=== PATIENT | male | born 1960 | race Caucasian/White ===

== ENCOUNTER 2019-12-28 06:11 | Emergency (ER) | payer MEDICAID, SELFPAY ==
[2019-12-28] VITALS (9 sets, daily range): BP systolic 112–147; BP diastolic 69–98; PULSE 90–113; RESP 20–35; TEMP 37; O2SAT 89–96; BMI 34.4
--- NOTE | 2019-12-28 06:25 | XRR_ITS ---
PROCEDURE INFORMATION: Exam: XR Chest, 1 View Exam date and time: 12/28/2019 6:26 AM Age: 59 years old Clinical indication: Shortness of breath; Additional info: SOB TECHNIQUE: Imaging protocol: XR of the chest Views: 1 view. COMPARISON: No relevant prior studies available. FINDINGS: Lungs: Bilateral interstitial pulmonary infiltrates are present with patchy bibasilar airspace consolidation greater on the right side. This is consistent with pneumonia possibly viral in nature. Pleural space: Unremarkable. No pleural effusion. No pneumothorax. Heart/Mediastinum: Unremarkable. No cardiomegaly. Bones/joints: There is a thoracic scoliosis convex the right. XR/XR chest 1V portable [id number] IMPRESSION: Bilateral interstitial pulmonary infiltrates with patchy basilar airspace consolidation most likely due to a viral pneumonia.
[2019-12-28 06:43] LABS: ABG PCO2 31.1 mmHg (35-45); ABG PH Result 7.48 (7.35-7.45); Arterial Blood Gas Hematocrit 44.8 % (42-52); Base Excess ABG 0.2 mmol/L (-2.0-2.0); Blood Gas Allen Test Pos; Blood Gas Sample Site Radial, left; Blood Gas Sample Type Arterial; HCO3 ABG 22.9 mmol/L (22-26); Oxygen Device NC; PO2 ABG 62.3 mmHg (80.0-100.0)
--- NOTE | 2019-12-28 06:54 | ED_ITS ---
HPI - SOB/Dyspnea General: Chief Complaint: Shortness of Breath/Dyspnea Stated Complaint: DIFFICULTY BREATHING Time Seen by Provider: 12/28/19 06:13 Source: patient and EMS Mode of arrival: EMS Limitations: no limitations History of Present Illness: HPI Narrative: 59-year-old male who is here from [facility] with Covid pneumonia. He tested positive last week and has had increasing shortness of breath. Patient is currently on 7 L and still in some distress with respiration saturation in the 80s. He had a low- grade fever. Patient denies any chest pain. He denies any worsening or improving factors. He is a DNR and DNI. Associated symptoms: Deny abdominal pain, chest pain, fever(s), nausea or vomiting Review of Systems Const: Denies: fever(s), chills, body aches or change in appetite Eyes: Denies: blurry vision or eye discomfort ENMT: Denies: throat pain or dental pain Card: Denies: chest pain Resp: Reports: dyspnea GI: Denies: abdominal pain, nausea, vomiting or diarrhea : Denies: dysuria Musc: Denies: neck pain or back pain Skin/Breast: Denies: rash Neuro: Denies: headache(s) Psych: Denies: depression Shai/Lymph: Denies: easy bruising All/Imm: Denies: urticaria Physical Exam Const: COMMON NORMALS: patient oriented x3 GENERAL APPEARANCE: ill appearing HENMT: COMMON NORMALS: normocephalic and atraumatic HEAD & SCALP: normocephalic and atraumatic Eye: COMMON NORMALS: Equal, round and reactive pupils present and EOMs intact bilaterally PUPIL: Yes Equal, round and reactive pupils present Neck/C-Spine: COMMON NORMALS: full ROM and supple Chest: COMMONS NORMALS: normal inspection of the chest and normal palpation of entire chest wall Resp: COMMON NORMALS: No retractions and No use of accessory muscles EFFORT & INSPECTION: Yes tachypneic and Yes respiratory distress AUSCULTATION: rales Cardio: COMMON NORMALS: regular rate, regular rhythm and No murmurs present (Cardio) RATE: regular rate RHYTHM: regular rhythm GI: COMMON NORMALS: Normal to inspection, nondistended, normoactive bowel sounds present, Soft to palpation, non-tender and no masses PALPATION: Yes Soft to palpation Extremity: COMMON NORMALS: normal to inspection and full ROM Neuro: COMMON NORMALS: patient oriented x3, moves all extremities and no focal motor deficits Psych: COMMON NORMALS: mental status grossly normal, Normal thought process present and cooperative THOUGHT PROCESS: Normal thought process present Skin: COMMON NORMALS: no rashes or lesions noted and no wounds GENERAL SKIN EXAM: no rashes or lesions noted Course Vital Signs: Vital signs: Vital Signs Temperature 98.6 F 12/28/19 10:43 Pulse Rate 95 12/28/19 10:43 Respiratory Rate 35 H 12/28/19 10:43 Blood Pressure 119/69 12/28/19 10:43 Pulse Oximetry 92 12/28/19 10:43 MDM - SOB/Dyspnea MDM Narrative: Medical decision making narrative: Jay presents here with Covid pneumonia causing dyspnea. Patient's been placed on BiPAP here. Patient is DNR and DNI. Will after transfer as we do not have any viral ICU beds. Spoke to [facility] and will transfer to [facility]. Patient has been stable otherwise while here. Lab Data: Labs: Lab Results 12/28/19 12/28/19 12/28/19 Range/Units 06:32 07:00 07:00 WBC 8.9 (4.0-10.0) 10^3/ uL RBC 5.09 (4.1-5.3) 10^6/u L Hgb 14.0 (11.7-16.6) g/dL Hct 42.8 (42.0-52.0) % MCV 84.1 (80-94) fL MCH 27.5 L (28.0-34.0) pg MCHC 32.7 (30.0-36.0) g/dL RDW 15.3 H (12.1-15.1) % Plt Count 303 (130-400) 10^3/c mm MPV 9.8 (7.4-10.4) fL Neut % (Auto) 73.5 % Lymph % (Auto) 17.0 % [place] % (Auto) 6.8 % Eos % (Auto) 0.1 % Baso % (Auto) 0.3 % Neut # (Auto) 6.56 (1.8-7.7) 10^3/u L Lymph # (Auto) 1.5 (0.8-4.8) 10^3/u L [place] # (Auto) 0.6 (0.2-0.9) 10^3/u L Eos # (Auto) 0.0 (0.0-0.8) 10^3/u L Baso # (Auto) 0.0 (0.0-0.1) 10^3/u L Nucleated RBC % (a uto) 0 % Nucleated RBCs # 0.0 /100WBC Fibrinogen (174-498) mg/dL Specimen Type Arterial Sample Site Radial, left ABG pH 7.48 H (7.35-7.45) ABG pCO2 31.1 L (35-45) mmHg ABG pO2 62.3 L (80.0-100.0) mmH g ABG HCO3 22.9 (22-26) mmol/L ABG Base Excess 0.2 (-2.0-2.0) mmol/ L Jase Test Pos Hematocrit 44.8 (42-52) % O2 Delivery Device Nc O2 Liters/Min 6.0 % FiO2 44.0 % 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7) g/dL Albumin 3.3 L (3.5-5.2) g/dL Globulin 3.8 (1.3-4.6) g/dL 12/28/19 12/28/19 Range/Units 07:00 07:50 WBC (4.0-10.0) 10^3/ uL RBC (4.1-5.3) 10^6/u L Hgb (11.7-16.6) g/dL Hct (42.0-52.0) % MCV (80-94) fL MCH (28.0-34.0) pg MCHC (30.0-36.0) g/dL RDW (12.1-15.1) % Plt Count (130-400) 10^3/c mm MPV (7.4-10.4) fL Neut % (Auto) % Lymph % (Auto) % [place] % (Auto) % Eos % (Auto) % Baso % (Auto) % Neut # (Auto) (1.8-7.7) 10^3/u L Lymph # (Auto) (0.8-4.8) 10^3/u L [place] # (Auto) (0.2-0.9) 10^3/u L Eos # (Auto) (0.0-0.8) 10^3/u L Baso # (Auto) (0.0-0.1) 10^3/u L Nucleated RBC % (a uto) % Nucleated RBCs # /100WBC Fibrinogen 781 H (174-498) mg/dL Specimen Type Sample Site ABG pH (7.35-7.45) ABG pCO2 (35-45) mmHg ABG pO2 (80.0-100.0) mmH g ABG HCO3 (22-26) mmol/L ABG Base Excess (-2.0-2.0) mmol/ L Jase Test Hematocrit (42-52) % O2 Delivery Device O2 Liters/Min % FiO2 % 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 Sodium (136-145) mmol/L Potassium (3.5-5.1) mmol/L Chloride (98-107) mmol/L Carbon Dioxide (22-29) mmol/L Anion Gap (5-19) BUN (6-20) mg/dL Creatinine (0.7-1.2) mg/dL GFR Calculation (90-130) mL/min Glucose (65-115) mg/dL Calculated Osmolal ity (285-295) mOsm/k g Lactic Acid 1.3 (0.5-2.2) mmol/L Calcium (8.5-10.5) mg/dL Total Bilirubin (0.15-1.2) mg/dL AST (0-40) U/L ALT (0-41) U/L Alkaline Phosphata se (40-130) IU/L C-Reactive Protein (0.0-4.9) mg/L NT-Pro-B Natriuret Pep (0-125) pg/mL Total Protein (6.6-8.7) g/dL Albumin (3.5-5.2) g/dL Globulin (1.3-4.6) g/dL Imaging Data^: CXR: Attestation: I personally reviewed and interpreted this imaging study as follows: Radiologist's impression: [place] [address] XRay Report Signed Patient: Jay Don Unit #: [id number] : 1960 Age/Sex: 59 / M ADM Date: 12/28/19 Loc: ER Room/Bed: Attending Dr: Ordering Provider/Ordering MD: Sergio Zapien MD Date of Service: 12/28/19 Procedure(s): XR chest 1V portable [id number] Accession Number(s): [id number] Report Number: [id number] PROCEDURE INFORMATION: Exam: XR Chest, 1 View Exam date and time: 12/28/2019 6:26 AM Age: 59 years old Clinical indication: Shortness of breath; Additional info: SOB TECHNIQUE: Imaging protocol: XR of the chest Views: 1 view. COMPARISON: No relevant prior studies available. FINDINGS: Lungs: Bilateral interstitial pulmonary infiltrates are present with patchy bibasilar airspace consolidation greater on the right side. This is consistent with pneumonia possibly viral in nature. Pleural space: Unremarkable. No pleural effusion. No pneumothorax. Heart/Mediastinum: Unremarkable. No cardiomegaly. Bones/joints: There is a thoracic scoliosis convex the right. XR/XR chest 1V portable [id number] IMPRESSION: Bilateral interstitial pulmonary infiltrates with patchy basilar airspace consolidation most likely due to a viral pneumonia. Critical Care Time Critical Care Time: Critical Care Time: Yes Total Critical Care Time: 36 Attestation: This case had a high probability of a clinically significant, sudden, or life threatening deterioration of this patient's condition which required my full and direct attention, intervention and personal management. Discharge Plan Discharge Prescriptions: No Action Unable to Assess RF: 0 Coding Level of Care Code ED Financial Services Auditor for Chg Fwd Exam Comprehensive
--- NOTE | 2019-12-28 07:15 | PC.NURSE ---
pt oxygen saturation 80% on 6L oxymask. Nurse in room and assisted pt with position to optimize lung expansion. oxygen at 13 L oxymask and pt's saturation only 85%. ED provider notified and in room. Verbal orders received for bipap.
[2019-12-28 07:24] LABS: Basophils % 0.3 %; Eosinophils % 0.1 %; Hematocrit 42.8 % (42.0-52.0); Lymphocytes # 1.5 10^3/uL (0.8-4.8); Mean Corpuscular HGB Conc 32.7 g/dL (30.0-36.0); Mean Corpuscular Hemoglobin 27.5 pg (28.0-34.0); Mean Corpuscular Volume 84.1 fL (80-94); Mean Platelet Volume 9.8 fL (7.4-10.4); Monocytes # 0.6 10^3/uL (0.2-0.9); Monocytes % 6.8 %; Neutrophils # 6.56 10^3/uL (1.8-7.7); Neutrophils % 73.5 %; Nucleated Red Blood Cells % 0 %; Platelet Count 303 10^3/cmm (130-400); Red Blood Count 5.09 10^6/uL (4.1-5.3); Red Cell Distribution Width 15.3 % (12.1-15.1); White Blood Count 8.9 10^3/uL (4.0-10.0)
[2019-12-28] MEDS: LORazepam 2 mg/mL INJ 1 mL 0.5 MG IVP ×2 (07:45→09:18)
[2019-12-28 08:29] LABS: Alanine Aminotransferase 27 U/L (0-41); Albumin Level 3.3 g/dL (3.5-5.2); Alkaline Phosphatase 57 IU/L (40-130); Aspartate Amino Transferase 58 U/L (0-40); Blood Urea Nitrogen 40 mg/dL (6-20); C Reactive Protein 175.6 mg/L (0.0-4.9); Calcium 8.9 mg/dL (8.5-10.5); Carbon Dioxide 23 mmol/L (22-29); Chloride 100 mmol/L (98-107); Globulin 3.8 g/dL (1.3-4.6); Glomerular Filtration Rate 68.8 mL/min (90-130); Glucose 99 mg/dL (65-115); NT Pro B Type Natriuretic Pept 357 pg/mL (0-125); Osmolality Calculated 294 mOsm/kg (285-295); Sodium 137 mmol/L (136-145); Total Bilirubin 0.4 mg/dL (0.15-1.2); Total Protein 7.1 g/dL (6.6-8.7)
[2019-12-28 08:38] LABS: Lactic Sepsis W/Reflex 1.3 mmol/L (0.5-2.2)
--- NOTE | 2019-12-28 08:56 | PC.NURSE ---
pt pulled off BIPAP, pulled out IV, was up walking around room disoriented. nursing staff at bedside. assisted pt back into bed. inserted another IV. Updated charge nurse and ED physician.
[2019-12-28 09:48] LABS: Fibrinogen 781 mg/dL (174-498)
--- NOTE | 2019-12-28 09:53 | PC.NURSE ---
Pt has came out of bed multiple times, pulling IVs out and attempting to leave. Sitter placed at bedside for safety.
[2019-12-28] MEDS: LORazepam 2 mg/mL INJ 1 mL 1 MG IVP (12:06)
--- NOTE | 2019-12-28 12:56 | PC.NURSE ---
EMS HERE TO TRANSPORT PT. EMS UNABLE TO TRANSPORT HIM ON BIPAP, THEY PUT HIM ON CPAP. PTS OXYGEN LEVEL DROPPED INTO 80S. DECISION MADE TO PUT PT ON CAPNOGRAPHY AND PLACE ON CPAP AND TRANSFER TO [facility]. PT OXYGEN LEVEL 94% ON DEPARTURE
== END 2019-12-28 13:14 | disposition other institution (70) ==
PROVIDERS: Emergency Provider Emergency Medicine; Family Provider Nurse Practitioner Family; PCP Nurse Practitioner Family
DX: U07.1 COVID-19 (principal)
CPT/HCPCS: 12345; 36415; 36600; 71045; 80053; 82803; 83605; 83880; 85025; 85384; 86140; 94660; 96365; 96375; 96376; 99283; 99285; J2060

== ENCOUNTER 2022-01-09 09:37 | Outpatient (CLI) | payer MEDICAID, SELFPAY ==
[2022-01-09 09:55] LABS: Basophils % 0.3 %; Eosinophils # 0.3 10^3/uL (0.0-0.8); Eosinophils % 2.3 %; Hemoglobin 12.9 g/dL (11.7-16.6); Lymphocytes # 3.3 10^3/uL (0.8-4.8); Lymphocytes % 28.4 %; Mean Corpuscular HGB Conc 30.7 g/dL (30.0-36.0); Mean Corpuscular Hemoglobin 26.8 pg (28.0-34.0); Mean Corpuscular Volume 87.1 fl (80-94); Mean Platelet Volume 9.4 fL (7.4-10.4); Monocytes # 0.8 10^3/uL (0.2-0.9); Monocytes % 6.5 %; Neutrophils # 7.18 10^3/uL (1.8-7.7); Neutrophils % 61.2 %; Nucleated Red Blood Cells % 0 %; Platelet Count 529 10^3/cmm (130-400); Red Blood Count 4.82 10^6/uL (4.1-5.3); Red Cell Distribution Width 15.6 % (12.1-15.1); White Blood Count 11.7 10^3/uL (4.0-10.0)
[2022-01-09 10:15] LABS: Blood Urea Nitrogen 23 mg/dL (8-23); Calcium 9.4 mg/dL (8.5-10.5); Carbon Dioxide 27 mmol/L (22-29); Chloride 101 mmol/L (98-107); Glomerular Filtration Rate 98.6 mL/min (90-130); Glucose 218 mg/dL (65-115); Osmolality Calculated 300 mOsm/kg (285-295); Sodium 140 mmol/L (136-145)
== END 2022-01-09 09:38 | disposition home or self-care (01) ==
PROVIDERS: Family Provider Nurse Practitioner Family; PCP Family Medicine; Visit Provider Internal Medicine
DX: E11.9 Type 2 diabetes mellitus without complications (principal)
CPT/HCPCS: 80048; 85025